=== PATIENT | female | born 1980 | race Caucasian/White ===

== ENCOUNTER 2018-07-25 15:59 | Emergency (ER) | payer OTHER ==
--- NOTE | 2018-07-25 19:13 | ED Physician Documentation ---
History of Present Illness - Stated complaint Stated Complaint: Gallardo Rash - Chief complaint Chief Complaint: General - History obtained from History obtained from: Patient - History of Present Illness Timing: Yesterday (A progressive painful area on the anterior medial left gallardo since last night. No recent travel. No chest pain or trouble breathing.) Review of Systems Constitutional: reports: Reviewed and negative Nose: reports: Reviewed and negative Throat: reports: Reviewed and negative PD PAST MEDICAL HISTORY - Present Medications Home Medications: Ambulatory Orders Medication Instructions Recorded Confirmed Cephalexin [Keflex] 500 mg PO Q6H #28 capsule 07/25/18 Medroxyprogesterone Acetate 104 mg SQ 07/25/18 07/25/18 [Depo-Subq Provera 104] Omeprazole Magnesium [Prilosec] 2.5 mg PO 07/25/18 raNITIdine [Zantac] 150 mg PO DAILY 07/25/18 07/25/18 - Allergies Allergies/Adverse Reactions: Allergies Allergy/AdvReac Type Severity Reaction Status Date / Time iodine Allergy Hives Verified 07/25/18 16:10 PD ED PE NORMAL - Vitals Vital signs reviewed: Yes - General General: Alert and oriented X 3, No acute distress - Extremities Extremities: Other (There is inflamed area with some tenderness measuring about 3 x 3 cm to the anteromedial right gallardo mostly consistent with likely a superficial phlebitis.) - Neuro Neuro: Alert and oriented X 3, Normal speech Results - Vitals Vitals: Vital Signs - 24 hr 07/25/18 07/25/18 16:07 21:31 Temperature 36.5 C 36.8 C Heart Rate 98 81 Respiratory 20 14 Rate Blood Pressure 133/99 H 132/82 H O2 Saturation 100 100 Oxygen O2 Source Room air - Rads (name of study) DVT scna Radiology: EMP read contemporaneously (neg) PD MEDICAL DECISION MAKING - ED course ED course: 38-year-old woman with what appears to be a focal superficial phlebitis in the left leg, versus cellulitis. Less likely was DVT, but this was ruled out on u ltrasound. Departure - Departure Disposition: 01 Home, Self Care Clinical Impression: Superficial phlebitis Cellulitis Qualifiers: Site of cellulitis: extremity Site of cellulitis of extremity: lower extremity Laterality: left Qualified Code(s): L03.116 - Cellulitis of left lower limb Condition: Good Record reviewed to determine appropriate education?: Yes Instructions: Cellulitis Dc, ED Phlebitis Superficial Prescriptions: Cephalexin [Keflex] 500 mg PO Q6H #28 capsule Comments: Call your doctor to arrange a follow-up appointment, make the next available appointment. In the interim, return anytime if worse or if new symptoms develop. Your blood pressure was elevated today on check into the emergency department. This does not mean that you have hypertension, it is a common phenomenon to come to the emergency department and have elevated blood pressure. I recommend that you see your primary care physician within the week to have it rechecked when you are feeling better.
--- NOTE | 2018-07-25 21:31 | Ultrasound Report ---
Reason: LLE pain Procedure Date: 07/25/2018 Accession Number: [id number] / [id number] Procedure: US - Duplex Ext Veins Left CPT Code: FULL RESULT: EXAM: LEFT LOWER EXTREMITY VENOUS ULTRASOUND EXAM DATE: 07/25/2018 09:00 PM. CLINICAL HISTORY: Left lower extremity pain. COMPARISON: None. TECHNIQUE: Real-time sonographic vascular imaging was performed by the manager convention through the lower extremity utilizing both color-flow and Doppler spectral analysis. Multiple residential sales representative static images were saved for review. FINDINGS: Common Femoral Vein (CFV): Normal. CFV-GSV Junction: Normal. Profunda Femoral Vein (PFV): Normal. Femoral Vein (FV) Prox: Normal. Femoral Vein (FV) Mid: Normal. Femoral Vein (FV) Dist: Normal. Popliteal Vein: Normal. Posterior Tibial Veins: Normal. Limited visualization. Peroneal Veins: Normal. Limited visualization. Contralateral Side CFV: Normal. IMPRESSION: No evidence for deep venous thrombosis. See above. RADIA
[2018-07-25 21:32] VITALS: BP 132/82
[2018-07-25] MEDS ORDERED: cephALEXin 250 MG CAPSULE PO STA (21:41)
== END 2018-07-25 21:49 | disposition home or self-care (01) ==
LOC: ED 15:59
DX: I80.02 Phlebitis and thrombophlebitis of superficial vessels of left lower extremity (principal); L03.116 Cellulitis of left lower limb; R03.0 Elevated blood-pressure reading, without diagnosis of hypertension
CPT/HCPCS: 93971; 99283; A9270

== ENCOUNTER 2020-09-11 15:41 | Outpatient (CLI) | payer OTHER ==
--- NOTE | 2020-09-12 09:42 | MRI Report ---
PROCEDURE: Knee LT W/O INDICATIONS: LEFT KNEE PAIN TECHNIQUE: Noncontrast sagittal PD fast spin echo and T2 fast spin echo with fat saturation, sagittal 3-D gradie nt sequence with fat saturation; coronal T1 spin echo and PD fast spin echo with fat saturation, and axial PD fast spin echo with fat saturation through the knee. COMPARISON: None. FINDINGS: Image quality: Excellent. Menisci: The medial and lateral menisci demonstrate normal morphology and internal signal. The meni scal root ligaments appear intact. Cruciate ligaments: The anterior and posterior cruciate ligaments appear intact. Medial structures: The medial collateral ligament appears intact. The posterior oblique ligament, s emimembranosus tendon insertions, and oblique popliteal ligament, and meniscocapsular junction appear intact. Visualized portions of the pes anserinus tendons appear normal. No abnormal bursal fluid. Lateral structures: The lateral collateral ligament, long and short heads of the biceps femoris tend on appear intact. The popliteus tendon appears normal; the popliteofibular ligament appears intact. The posterosuperior and anteroinferior popliteomeniscal fascicles appear intact. The arcuate and fa bellofibular ligaments appear intact, around the lateral inferior geniculate artery. Iliotibial band appears normal. Anterior structures: The quadriceps and patellar tendons appear intact. Patellar alignment is jeanette l. No femoral trochlear dysplasia or ventral trochlear prominence. No edema in the infrapatellar fa t pad. Bones and cartilage: There is marrow edema involving anterior and lateral portion of patella without discrete fracture line. Similar edema is also noted involving lateral and anterior periphery of later al femoral condyle. No other area of abnormal marrow signal is seen. The cartilage of the medial and lateral femorotibial compartments, are grossly intact. Low-grade chondromalacia involving apex of pat kylie cartilage is noted. Joint space: There is physiologic knee joint fluid. No Garcia?s cyst. Normal appearing synovial pli are incidentally noted. IMPRESSION: 1. Suggestion of bony contusion involving lateral portion of patella and adjacent anterolateral perip hill of lateral femoral condyle. No fracture or dislocation. 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 2. Cruciate ligaments are intact. 3. No evidence of focal meniscal tear. Reviewed by: Guy Muir MD on 09/12/2020 9:41 AM PST Approved by: Guy Muir MD on 09/12/2020 9:41 AM PST Station ID: [id number]
== END 2020-09-11 15:42 | disposition home or self-care (01) ==
LOC: DI 15:41
PROVIDERS: ATTEND Family Medicine
DX: M25.562 Pain in left knee (principal); M22.42 Chondromalacia patellae, left knee